=== PATIENT | female | born 1960 | race Two or more races ===

== ENCOUNTER 2017-11-29 09:53 | Emergency (ER) | payer MEDICAID ==
[2017-11-29 10:54] LABS: PLATELET COUNT 276 10^3/uL (150-400)
[2017-11-29] MEDS ORDERED: valACYclovir 500 MG TAB PO ONE (11:42)
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
[2017-11-29 12:26] VITALS: BP 137/79; PULSE 107; RESP 16; TEMP 99; O2SAT 93
== END 2017-11-29 12:27 | disposition home or self-care (01) ==
LOC: CED 09:53
DX: B02.9 Zoster without complications (principal); A04.72 Enterocolitis due to Clostridium difficile, not specified as recurrent; G58.8 Other specified mononeuropathies; J45.909 Unspecified asthma, uncomplicated; E11.9 Type 2 diabetes mellitus without complications
CPT/HCPCS: 70450-PO; 80053-PO; 84443-PO; 85025-PO